=== PATIENT | male | born 1975 | race Native Hawaiian/Other Pacific Islander ===

== ENCOUNTER 2021-08-27 12:24 | Emergency (ER) | payer OTHER ==
[~2021-08-27] VITALS: Ht 188 cm; Wt 163.3 kg
[2021-08-27] MEDS ORDERED: Percocet 5-3251 EACH PO (15:06)
[2021-08-27] MEDS ORDERED: IBUP800 PO (15:06)
== END 2021-08-27 16:26 | disposition home or self-care (01) ==
LOC: ER 12:24
DX: S82.852A Displaced trimalleolar fracture of left lower leg, initial encounter for closed fracture (principal); W01.0XXA Fall on same level from slipping, tripping and stumbling without subsequent striking against object, initial encounter; I10 Essential (primary) hypertension
CPT/HCPCS: 27818; 73600; 73610; 96374-59; 96375-59; 99284-25; J1170; J3010

== ENCOUNTER 2021-09-05 11:51 | Day surgery (SDC) | payer OTHER ==
[~2021-09-05] VITALS: Ht 185.4 cm; Wt 167.4 kg
[~2021-09-05 11:51] MED LIST: IBUP800 PO; Percocet 5-3251 EACH PO
[2021-09-05] MEDS ORDERED: LISI20 PO (12:55)
--- NOTE | 2021-09-05 16:58 | NUR ---
09/05/21 1658 Melo Hicks PER ANESTHESIA UTILIZED 2 BLUE WEDGE FOAM UNDER UPPER BODY AND HEAD TO ELEVATE UPPER BODY. GEL DONUT PLACED UNDER HEAD. CORRESPONDING BLUE PADS PLACED ON ARMBOARDS WITH EGG CRATE ON TOP.
--- NOTE | 2021-09-05 19:18 | NUR ---
Patient up to Ambulate independently. Gait steady. Discharge instructions reviewed with patient. Patient verbalizes understanding. Copy given to patient to take home. Patient States Post-Procedure ride home has been arranged. Discharged via wheelchair to private car for ride home. NON WT BEARING, RICE PROTOCOL T/O WEEKEND, MEDICATIONS INCLUDING PO EC ASA DIALY
== END 2021-09-05 23:53 | disposition home or self-care (01) ==
LOC: ORSCMMR 11:51
PROVIDERS: Orthopaedic Surgery
PROC: 0QSK04Z Reposition Left Fibula with Internal Fixation Device, Open Approach (ICD-10-PCS; principal; 2021-09-05 14:30)
PROC: 0QSH04Z Reposition Left Tibia with Internal Fixation Device, Open Approach (ICD-10-PCS; principal; 2021-09-05 14:30)
DX: S82.852A Displaced trimalleolar fracture of left lower leg, initial encounter for closed fracture (principal); I10 Essential (primary) hypertension; G47.33 Obstructive sleep apnea (adult) (pediatric); F32.A Depression, unspecified; E66.01 Morbid (severe) obesity due to excess calories; Z68.42 Body mass index [BMI] 45.0-49.9, adult; Z79.899 Other long term (current) drug therapy
CPT/HCPCS: A9270; C1713; J0330; J0690; J1100; J1885; J2270; J2370; J2405; J2704; J2765; J2795; J3010; J7120